=== PATIENT | male | born 1975 | race Two or more races ===

== ENCOUNTER 2025-02-17 16:47 | Emergency (ER) | payer SELFPAY ==
[2025-02-17 17:00] VITALS: BP 168/97; PULSE 84; TEMP 36.8; O2SAT 99; BMI 29.7
[2025-02-17 17:39] LABS: Hematocrit 45.0 % (42.0-54.0); Hemoglobin 15.2 g/dL (14.0-18.0); Immature Granulocytes Abs Auto 0.01 10^3/uL (0.00-0.03); Immature Granulocytes Pct Auto 0.2 % (0.0-0.5); Lymphocytes Absolute Auto 3.0 10^3/uL (1.2-3.8); Mean Corpuscular HGB Conc 33.8 g/dL (29.9-35.2); Mean Corpuscular Hemoglobin 29.6 pg (25.9-34.0); Mean Corpuscular Volume 87.5 fL (80.0-94.0); Platelet Count 227 10^3/uL (150-450); Red Blood Count 5.14 10^6/uL (4.70-6.10); White Blood Count 6.1 10^3/uL (4.0-11.0)
--- NOTE | 2025-02-17 17:44 | CT_ITS ---
The [address] [address] Patient Name: IVNÁ CHESTER MRN: [id number] date: 1975 Sex: M Assigned Patient Location: ED.MAIN Current Patient Location: ED.MAIN Accession/Order Number: [id number] Exam Date: 02/17/2025 18:02 Report Date: 02/17/2025 18:35 At the request of: WINSTON MCCOY Procedure: CT abdomen pelvis wo con CT ABDOMEN AND PELVIS WITHOUT INTRAVENOUS CONTRAST: CLINICAL HISTORY: Bilateral flank pain COMPARISON: None TECHNIQUE: Spiral images were obtained through the abdomen and pelvis without intravenous contrast. This CT exam was performed using one or more following dose reduction techniques: Automated exposure control, adjustment of the mA and/or kV according to patient size, or use of iterative reconstruction technique. FINDINGS: Lung Bases: [No acute findings.] Organs:Suboptimal evaluation due to lack of IV contrast. Liver gallbladder spleen pancreas and adrenal glands appear unremarkable. Kidneys demonstrate no stone or hydronephrosis. Abdominal aorta appears normal in caliber.[ GI: Small hiatal hernia. Distal stomach is grossly normal. Small bowel appears nondilated. No acute colonic abnormality.[ Pelvis:[Urinary bladder is grossly unremarkable. Prostatomegaly.] Peritoneum/Retroperitoneum:No free air or free fluid or lymphadenopathy.[ Abd wall/Bones:No acute findings. Osseous structures demonstrate degenerative change.[ CT/CT abdomen pelvis wo con IMPRESSION: No acute findings. Impression dictated by: Connor Johnson Jr., D.O. 02/17/2025 6:35 PM Dictation Location: [employer] Electronically authenticated by: [id number] Y Date: 02/17/2025 18:35
[2025-02-17 17:46] LABS: Glucose Urine UA NEGATIVE (NEGATIVE)
--- NOTE | 2025-02-17 17:48 | ED.GENADUL1 ---
HPI HPI - General Adult General Chief complaint: Urogenital-Male Stated complaint: kidney pain Time Seen by Provider: 02/17/25 17:06 Source: patient Mode of arrival: walk-in Limitations: no limitations History of Present Illness HPI narrative: Patient is a 49-year-old male who presents to the emergency department for bilateral flank pain radiating into the abdomen. He states pain in the bilateral flanks has been present for 3 months but in the last 3 days has started to radiate into the bilateral lower quadrants of the abdomen. He has not had any dysuria or hematuria. He has had no fevers or vomiting. No falls or injuries. No pain radiation into the lower extremities or paresthesias. No medications taken prior to arrival. Related Data Previous Rx's ?Medication ?Instructions ?Recorded ketorolac 10 mg tablet 10 mg PO TID PRN pain #10 tabs 02/17/25 methocarbamol 750 mg tablet 750 mg PO TID PRN pain #20 tabs 02/17/25 Allergies Allergy/AdvReac Type Severity Reaction Status Date / Time No Known Drug Allergies Allergy Verified 02/17/25 17:05 Opioid HPI Opioid Management Most Recent Opioid Data: Last Pain Scale 10 Today, 17:00 Last MAY Pain Assessment Today, 17:52 Review of Systems ROS Constitutional Denies: fever or chills Ears, nose, mouth, and throat Denies: throat pain Cardiovascular Denies: chest pain Respiratory Denies: shortness of breath Gastrointestinal Reports: abdominal pain; Denies: nausea or vomiting Genitourinary Denies: painful urination Musculoskeletal Reports: back pain; Denies: neck pain or extremity pain Integumentary/Breast Denies: rash Neurological Denies: numbness in extremities or weakness in extremities Hematologic/Lymphatic Denies: easy bruising or easy bleeding Exam Narrative Exam Narrative: General: No acute distress HEENT: Atraumatic, normocephalic Respiratory: No acute respiratory distress Cardio: Regular rate and rhythm Abdomen: Abdomen is soft and nontender, nondistended. Right flank is minimally tender, no CVA tenderness Skin: Warm and dry Neuro: No focal neurodeficit Psych: Normal mood and affect Constitutional Vital Signs, click to edit/add: Last Vital Signs Temp 98.3 F 02/17/25 17:00 Pulse 84 02/17/25 17:00 Resp 14 02/17/25 17:00 BP 168/97 H 02/17/25 17:00 Pulse Ox 99 02/17/25 17:00 O2 Del Method Room Air 02/17/25 17:00 Course Vital Signs Vital signs: Vital Signs Temperature 98.3 F 02/17/25 17:00 Pulse Rate 84 02/17/25 17:00 Respiratory Rate 14 02/17/25 17:00 Blood Pressure 168/97 H 02/17/25 17:00 Pulse Oximetry 99 02/17/25 17:00 Oxygen Delivery Method Room Air 02/17/25 17:00 Temperature 98.3 F 02/17/25 17:00 Pulse Rate 84 02/17/25 17:00 Respiratory Rate 14 02/17/25 17:00 Blood Pressure 168/97 H 02/17/25 17:00 Pulse Oximetry 99 02/17/25 17:00 Oxygen Delivery Method Room Air 02/17/25 17:00 Medical Decision Making MDM Narrative Medical decision making narrative: Lab studies are unremarkable, CT of the abdomen and pelvis was performed based on length of symptoms. CT with no evidence of acute process. Patient was medicated with Toradol in the ER. He is discharged with Toradol and muscle relaxants for home. He is given a referral for primary care. Return to the emergency department if symptoms change or worsen Medical Records Medical records reviewed: Yes I reviewed the patient's medical records Lab Data Lab results reviewed: Yes I reviewed the patient's lab results Labs: Lab Results 02/17/25 02/17/25 Range/Units 17:35 17:40 WBC 6.1 (4.0-11.0) 10^3/uL RBC 5.14 (4.70-6.10) 10^6/uL Hgb 15.2 (14.0-18.0) g/dL Hct 45.0 (42.0-54.0) % MCV 87.5 (80.0-94.0) fL MCH 29.6 (25.9-34.0) pg MCHC 33.8 (29.9-35.2) g/dL RDW 12.7 (11.0-15.0) % Plt Count 227 (150-450) 10^3/uL MPV 9.3 L (9.5-13.5) fL Neut % (Auto) 38.3 L (43.0-75.0) % Lymph % (Auto) 48.0 (20.5-60.0) % [place] % (Auto) 10.9 (1.7-12.0) % Eos % (Auto) 2.3 (0.9-7.0) % Baso % (Auto) 0.3 (0.2-2.0) % Neut # (Auto) 2.4 (1.4-6.5) 10^3/uL Lymph # (Auto) 3.0 (1.2-3.8) 10^3/uL [place] # (Auto) 0.7 (0.3-0.8) 10^3/uL Eos # (Auto) 0.1 (0.0-0.7) 10^3/uL Baso # (Auto) 0.0 (0.0-0.1) 10^3/uL Abs Immat Gran (auto) 0.01 (0.00-0.03) 10^3/uL Imm/Tot Granulo (auto) 0.2 (0.0-0.5) % Sodium 141 (136-145) mmol/L Potassium 3.4 L (3.5-5.1) mmol/L Chloride 105 (98-107) mmol/L Carbon Dioxide 30.4 (21.0-32.0) mmol/L Anion Gap 9.0 BUN 15.0 (7.0-18.0) mg/dL Creatinine 1.01 (0.70-1.30) mg/dL Est GFR ( Amer) >60 (>=60 mL/min/1.73m^2) Est GFR (Non-Af Amer) >60 (>=60 mL/min/1.73m^2) BUN/Creatinine Ratio 14.9 Glucose 114 H (74-106) mg/dL Calcium 8.8 (8.5-10.1) mg/dL Total Bilirubin 0.4 (0.2-1.0) mg/dL AST 17 (15-37) U/L ALT 27 (16-63) U/L Alkaline Phosphatase 77 (46-116) U/L Total Protein 8.0 (6.4-8.2) g/dL Albumin 4.0 (3.4-5.0) g/dL Globulin 4.0 g/dL Albumin/Globulin Ratio 1.0 Urine Color Lt. yellow (YELLOW) Urine Clarity Clear (CLEAR) Urine pH 7.0 (5.0-9.0) Ur Specific [place] 1.015 (1.005-1.025) Urine Protein Negative (NEG/TRACE) mg/dL Urine Glucose (UA) Negative (NEGATIVE) mg/dL Urine Ketones Negative (NEGATIVE) mg/dL Urine Occult Blood Trace-i (NEGATIVE) Urine Nitrite Negative (NEGATIVE) Urine Bilirubin Negative (NEGATIVE) Urine Urobilinogen 0.2 (0.2-1.0) EU/dL Ur Leukocyte Esterase Negative (NEGATIVE) Urine RBC 0-2 (0-2) #/HPF Urine WBC 0-2 A (NONE SEEN) #/HPF Ur Squamous Epith Cells Rare (NONE/RARE) #/LPF Urine Crystals Seen A (None Seen) #/HPF Amorphous Sediment Moderate Urine Bacteria Trace A (NONE SEEN) #/HPF Urine Casts None seen (NONE SEEN) #/LPF Urine Mucus None seen (NONE SEEN) Ur Culture Indicated? No Imaging Data CT scan - abdomen: Attestation: I have reviewed the pertinent imaging results. Radiologist's impression: ITS Impressions Abdomen/Pelvis CT 02/17/25 17:44 IMPRESSION: No acute findings. Impression dictated by: Connor Johnson Jr., D.O. 02/17/2025 6:35 PM Dictation Location: [facility] Electronically authenticated by: [id number] Y Date: 02/17/2025 18:35 Discharge Plan Discharge Chief Complaint: Urogenital-Male Clinical Impression: Bilateral flank pain Patient Disposition: Home, Self-Care Time of Disposition Decision: 18:48 Condition: Good Prescriptions / Home Meds: New ketorolac 10 mg tablet 10 mg PO TID PRN (Reason: pain) Qty: 10 0RF methocarbamol 750 mg tablet 750 mg PO TID PRN (Reason: pain) Qty: 20 0RF Print Language: Welsh Instructions: Flank Pain (ED) Referrals: Physician,Non-Staff, MD [Primary Care Provider] - 1 week
--- OUTSIDE RECORDS SUMMARY | 2025-02-17 17:51 | XMS_ITS | Clinical Summary ---
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 Name Role Phone Unavailable Primary Care Provider Unavailabl e Social History Tobacco UseTypesPacks/DayYears UsedDateSmoking Tobacco: Never AssessedSex and Gender InformationValueDate RecordedSex Assigned at BirthNot on fileLegal Sex Male06/10/2022 7:26 PM EDTGender IdentityNot on fileSexual OrientationNot on file Last Filed Vital Signs Vital SignReadingTime TakenCommentsBlood Skwrjwjg721/7003/11/2018 12:00 PM EST Pulse--Temperature--Respiratory Rate--Oxygen Saturation--Inhaled Oxygen Concentration--Gmgqal31 kg (187 lb 6.4 oz)03/11/2018 12:00 PM YMDNgszbi986.6 cm (5' 6 )03/11/2018 12:00 PM ESTBody Mass Index30.25105/12/2017 12:00 PM EST Plan of Treatment Not on file
--- OUTSIDE RECORDS SUMMARY | 2025-02-17 17:51 | XMS_ITS | Clinical Summary ---
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 Name Role Phone Unavailable Primary Care Provider Unavailabl e Allergies No known active allergies Medications No known medications Active Problems ProblemNoted DateDiagnosed DateAnal tihoovn4001/11/2024Internal hemorrhoid 01/11/2024rimary kbaiibldduib17/15/2024 Social History Tobacco UseTypesPacks/DayYears UsedDateSmoking Tobacco: NeverPassive Smoke Exposure: NeverSmokeless Tobacco: Never Tobacco Cessation:Counseling Given: Not Answered Alcohol UseStandard Drinks/WeekCommentsYes0 (1 standard drink = 0.6 oz pure alcohol)sociallyPHQ-2AnswerDate RecordedPHQ-9 Total Sqdta041Sex and Gender InformationValueDate RecordedSex Assigned at BirthNot on fileLegal Sex Male01/05/2024 1:37 PM EDTGender RqcvqabpWrjh39/15/2024 10:42 AM EDTSexual OrientationDon't know01/11/2024 10:42 AM EDT Last Filed Vital Signs Vital SignReadingTime TakenCommentsBlood Ukprnomu843/7601/25/2024 10:26 AM EDT Ghfrt069201/25/2024 10:26 AM EDTTemperature--Respiratory Jury3790 10:55 AM EDTOxygen Heywyggflm08%01/25/2024 10:26 AM EDTInhaled Oxygen Concentration-- Yhrxaj22.6 kg (182 lb)01/25/2024 10:26 AM WTCMsvxfw350.1 cm (5' 5 )01/25/2024 10:26 AM EDTBody Mass Index30.291 10:26 AM EDT Plan of Treatment Health MaintenanceDue DateLast DoneCommentsCT Ibikrjbzhrei81/06/1977Fecal DNA 1976Fecal occult blood test (FOBT,FIT)1976Flexible sigmoidoscopy 1975PSA Level1976MMR Vaccines (1 of 1 - Standard series)1977 Wellness Visit09/02/1979HIV Cvzpcegmz67/06/1992Hepatitis C Thgizddpo35/06/1995 Hepatitis B Vaccines (1 of 3 - 19+ 3-dose series)09/02/1995COVID-19 Vaccine (3 - 2024- season)/, 03/03/2021Influenza Vaccine (#1)2024 Depression Screening/Follow-Up (PHQ-2/9)/ Tetanus/Diphtheria/Pertussis (2 - Td or Tdap)/12/2016Zoster Vaccines (1 of 2)09/01/20263078Gmfwvzlttdq51Colorectal Cancer Screening/Jstwttnaah28/11/2030RSV Vaccines (1 - 1-dose 75+ series)09/02/2051HIB VaccinesAged OutNo longer eligible based on patient's age to complete this topic HPV VaccinesAged OutNo longer eligible based on patient's age to complete this topicHepatitis A VaccinesAged OutNo longer eligible based on patient's age to complete this topicIPV VaccinesAged OutNo longer eligible based on patient's age to complete this topicMeningococcal ACWY VaccineAged OutNo longer eligible based on patient's age to complete this topicMeningococcal B VaccineAged OutNo longer eligible based on patient's age to complete this topicPneumococcal VaccineAged OutNo longer eligible based on patient's age to complete this topicRotavirus VaccinesAged OutNo longer eligible based on patient's age to complete this topic
[2025-02-17] MEDS: KETOROLAC TROMETHAMINE 30 MG/ML VIAL IVP (17:52)
[2025-02-17 17:54] LABS: Alanine Aminotransferase 27 U/L (16-63); Albumin Globulin Ratio 1.0; Albumin Level 4.0 g/dL (3.4-5.0); Alkaline Phosphatase 77 U/L (46-116); Anion Gap 9.0; Aspartate Amino Transferase 17 U/L (15-37); Blood Urea Nitrogen 15.0 mg/dL (7.0-18.0); Calcium 8.8 mg/dL (8.5-10.1); Carbon Dioxide 30.4 mmol/L (21.0-32.0); Chloride 105 mmol/L (98-107); Estimated GFR (African America >60 (>=60 mL/min/1.73m^2); Estimated GFR (Non-African Ame >60 (>=60 mL/min/1.73m^2); Globulin 4.0 g/dL; Glucose 114 mg/dL (74-106); Potassium 3.4 mmol/L (3.5-5.1); Sodium 141 mmol/L (136-145); Total Protein 8.0 g/dL (6.4-8.2)
[2025-02-17 18:01] LABS: Cast Seen? NONE SEEN #/LPF (NONE SEEN); Crystals Seen? Seen #/HPF (None Seen); Urine Culture Indicated NO
== END 2025-02-17 19:02 | disposition home or self-care (01) ==
PROVIDERS: Physician Assistant; Emergency Provider Emergency Medicine
DX: R10.31 Right lower quadrant pain (principal); R10.32 Left lower quadrant pain
CPT/HCPCS: 36415; 74176; 80053; 81001; 85025; 96374; 99285; J1885